=== PATIENT | female | born 1945 ===

== ENCOUNTER 2017-10-09 07:25 | Day surgery (SDC) | payer SELFPAY ==
[2017-10-09] MEDS ORDERED: Lactated Ringer's 1,000 ML IV ONE (07:41)
[2017-10-09] MEDS ORDERED: Propofol 10 mg/ml Inj (20 ML) ONE (09:13)
[2017-10-09] MEDS ORDERED: Lidocaine 2% MPF (5 ml) Inj ONE (09:14)
[2017-10-09 09:46] VITALS: TEMP 97
[2017-10-09 10:02] VITALS: BP 135/78; PULSE 63; RESP 15; O2SAT 100
== END 2017-10-09 10:10 | disposition home or self-care (01) ==
LOC: H.ENDO 07:25
PROVIDERS: ATTEND Internal Medicine Gastroenterology
DX: Z12.11 Encounter for screening for malignant neoplasm of colon (principal); I10 Essential (primary) hypertension; K63.89 Other specified diseases of intestine; K64.8 Other hemorrhoids
CPT/HCPCS: 45378; J2704; J7120